=== PATIENT | female | born 1990 | race Caucasian/White ===

== ENCOUNTER 2017-12-17 17:06 | Emergency (ER) | payer OTHER ==
[~2017-12-17] VITALS: Ht 165.1 cm; Wt 104.8 kg
[~2017-12-17 17:06] MED LIST: PRENAISSANCE C1 EACH PO; TYLENOL325 MG PO
== END 2017-12-17 17:24 | disposition home or self-care (01) ==
LOC: ED 17:06
DX: S61.215A Laceration without foreign body of left ring finger without damage to nail, initial encounter (principal); W22.8XXA Striking against or struck by other objects, initial encounter

== ENCOUNTER 2018-08-15 13:39 | Inpatient (IN) | payer OTHER ==
[~2018-08-15] VITALS: Ht 165.1 cm; Wt 109.0 kg
--- NOTE | 2018-08-16 12:27 | PR ---
[facility] [address] [facility] [place], [place] [address] Signed Progress Notes IP Datetime Report Generated by CPN: 08/16/2018 12:27 PROGRESS NOTES: [id number] Impression: Normal progression of labor Procedures: Artificial ROM Plan: Anticipate Vaginal Delivery VITAL SIGNS: [id number] Vital Signs: Reviewed; Within Normal Limits EXAM: [id number] Dilatation: 4.0 Effacement: 50 Station: -3 Uterine Contractions: every 3-5 minutes MEMBRANES: [id number] Membrane Status: Ruptured Amniotic Fluid Color: Clear ROM Note: AROM with moderate clear fluid Comments: Tolerating contractions well Fetus A: [id number] FHR Baseline: 130 Variability: Moderate 6-25bpm Accelerations: 15X15 Presentation: Vertex Fetus B: [id number] Signing Physician: Tod Wong MD Copies: ~ *Electronically Signed* 08/16/18 1227 TOD WONG MD PATIENT NAME: SAMINA ALEGRE PROGRESS NOTE DATE OF : 89 PHYSICIAN: TOD WONG MD RPT #: [id number] REPORT IS CONFIDENTIAL AND NOT TO BE RELEASED WITHOUT AUTHORIZATION
--- NOTE | 2018-08-17 11:00 | PR ---
[facility] [address] [facility] [place] [address] Signed PP Progress Notes Datetime Report Generated by CPN: 08/17/2018 11:00 SUBJECTIVE: [id number] Pain: Within normal limits Nausea/Vomiting: Denies Vital Signs: [id number] Vital Signs: Reviewed; Within Normal Limits Notable Details: PP Hgb/Hct = 11.5/34.3 EXAM: [id number] Abdomen/Uterus: Normal Lochia: Normal Extremities: Normal IMPRESSION/PLAN/PROCEDURES: [id number] Impression: Normal progression Plan: Discharge Procedures: None Progress Notes: Doing well, without complaint, wants to go home. Signing Physician: Tod Wong MD Copies: ~ *Electronically Signed* 08/17/18 1100 TOD WONG MD PATIENT NAME: SAMINA ALEGRE PROGRESS NOTE DATE OF : 92 PHYSICIAN: TOD WONG MD RPT #: [id number] REPORT IS CONFIDENTIAL AND NOT TO BE RELEASED WITHOUT AUTHORIZATION
== END 2018-08-17 16:45 | disposition home or self-care (01) | DRG 807 ==
LOC: FBC 08-16 00:02
PROVIDERS: ADMIT General Practice
PROC: 10E0XZZ Delivery of Products of Conception, External Approach (ICD-10-PCS; principal; 2018-08-16)
PROC: 0HQ9XZZ Repair Perineum Skin, External Approach (ICD-10-PCS; 2018-08-16)
PROC: 10907ZC Drainage of Amniotic Fluid, Therapeutic from Products of Conception, Via Natural or Artificial Opening (ICD-10-PCS; 2018-08-16)
PROC: 3E0P7VZ Introduction of Hormone into Female Reproductive, Via Natural or Artificial Opening (ICD-10-PCS; 2018-08-16)
PROC: 00HU33Z Insertion of Infusion Device into Spinal Canal, Percutaneous Approach (ICD-10-PCS; 2018-08-16)
PROC: 3E0R3BZ Introduction of Anesthetic Agent into Spinal Canal, Percutaneous Approach (ICD-10-PCS; 2018-08-16)
PROC: 3E0234Z Introduction of Serum, Toxoid and Vaccine into Muscle, Percutaneous Approach (ICD-10-PCS; 2018-08-17)
DX: O69.81X0 Labor and delivery complicated by cord around neck, without compression, not applicable or unspecified (principal); Z37.0 Single live birth; O70.0 First degree perineal laceration during delivery; Z3A.39 39 weeks gestation of pregnancy; O66.0 Obstructed labor due to shoulder dystocia; O26.893 Other specified pregnancy related conditions, third trimester; Z67.41 Type O blood, Rh negative; Z88.0 Allergy status to penicillin
CPT/HCPCS: 36415; 83030; 85027; 86850; 86870; 86900; 86901; J2590; J2790; J2795; J3010; J7120

== ENCOUNTER 2019-09-13 05:58 | Emergency (ER) | payer BC ==
[~2019-09-13] VITALS: Ht 165.1 cm; Wt 104.8 kg
[2019-09-13] MEDS ORDERED: NORCO 5-325 TA1 EACH PO (07:03)
[2019-09-13] MEDS ORDERED: FLOMAX0.4 MG PO (15:13)
[2019-09-13] MEDS ORDERED: PROMETHAZINE HC25 M1 PO (15:13)
[2019-09-13] MEDS ORDERED: NORCO 7.5-3251 EACH PO (15:13)
[2019-09-13] MEDS ORDERED: ONDANSETRON ODT8 MG PO (15:13)
== END 2019-09-13 07:14 | disposition home or self-care (01) ==
LOC: ED 05:58
DX: R10.31 Right lower quadrant pain (principal); R11.2 Nausea with vomiting, unspecified; Z88.0 Allergy status to penicillin; Z79.899 Other long term (current) drug therapy
CPT/HCPCS: 80053; 81001; 83690; 84703; 85025; 99284

== ENCOUNTER 2019-09-13 11:32 | Emergency (ER) | payer BC ==
[~2019-09-13] VITALS: Ht 165.1 cm; Wt 104.3 kg
[~2019-09-13 11:32] MED LIST changes: +NORCO 5-325 TA1 EACH PO
--- OUTSIDE RECORDS SUMMARY | 2019-09-13 11:34 | XMS ---
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 Catrachita has no Care Guidelines for this patient. [place] VISIT COUNT (12 MO.) [address] [facility] TOTAL 2 NOTE: Visits indicate total known visits. ED/C VISIT TRACKING (12 MO.) 09/13/2019 11:[address] [facility] [place] TYPE: Emergency COMPLAINT: - FLANK PAIN 09/13/2019 05:58 [facility] [place] TYPE: Emergency COMPLAINT: - ABDOMINAL PAIN INPATIENT VISIT TRACKING (12 MO.) No inpatient visits to display in this time frame [email or web address]
[2019-09-13] MEDS ORDERED: NORCO 7.5-3251 EACH PO (15:13)
[2019-09-13] MEDS ORDERED: ONDANSETRON ODT8 MG PO (15:13)
[2019-09-13] MEDS ORDERED: PROMETHAZINE HC25 M1 PO (15:13)
[2019-09-13] MEDS ORDERED: FLOMAX0.4 MG PO (15:13)
== END 2019-09-13 15:57 | disposition home or self-care (01) ==
LOC: ED 11:32
DX: N13.2 Hydronephrosis with renal and ureteral calculous obstruction (principal); Z88.0 Allergy status to penicillin
CPT/HCPCS: 74176; 96374; 96375; 99284-25; A9270; J1170; J1885; J2405; J2550